=== PATIENT | male | born 1995 | race African-American/Black ===

== ENCOUNTER 2016-07-14 17:52 | Emergency (ER) | payer OTHER | END 2016-07-14 19:26 | disposition home or self-care (01) | LOC: ER 17:52 | DX: R07.89 Other chest pain (principal); R10.11 Right upper quadrant pain; K21.9 Gastro-esophageal reflux disease without esophagitis; E66.9 Obesity, unspecified; Z68.43 Body mass index [BMI] 50.0-59.9, adult | CPT/HCPCS: 36415; Q9967 ==

== ENCOUNTER 2016-07-19 10:52 | Emergency (ER) | payer OTHER | END 2016-07-19 13:16 | disposition home or self-care (01) | LOC: ER 10:52 | DX: R07.89 Other chest pain (principal); R10.11 Right upper quadrant pain; R06.02 Shortness of breath; K21.9 Gastro-esophageal reflux disease without esophagitis; Z88.8 Allergy status to other drugs, medicaments and biological substances | CPT/HCPCS: 36415 ==

== ENCOUNTER 2016-09-14 12:07 | Emergency (ER) | payer OTHER | END 2016-09-14 16:00 | disposition home or self-care (01) | LOC: ER 12:07 | DX: K21.9 Gastro-esophageal reflux disease without esophagitis (principal); E66.01 Morbid (severe) obesity due to excess calories; Z68.43 Body mass index [BMI] 50.0-59.9, adult; Z88.8 Allergy status to other drugs, medicaments and biological substances | CPT/HCPCS: 36415; 80307 ==